=== PATIENT | male | born 1955 | race Caucasian/White ===

== ENCOUNTER 2023-02-21 06:26 | Day surgery (SDC) | payer OTHER ==
[~2023-02-21] VITALS: Ht 172.7 cm; Wt 81.6 kg
[~2023-02-21 06:26] MED LIST: GLIP5TAB13 PO; INSU100C5 IJ; INSU100V9 SQ; LISI10TA29 PO; METF-379 PO; [UNRECOGNIZED DRUG - OTHER]
[2023-02-21] MEDS ORDERED: CLINDAMYCIN PHOS 900 MG/ D5W 50 ML PREMIX IV ONE (07:00)
[2023-02-21] MEDS ORDERED: HYDROmorphone 2 MG/ML VIAL IVP PRN (08:45)
[2023-02-21] MEDS ORDERED: HYDROmorphone 1 MG/ML INJ. CARTRIDGE IVP PRN ×2 (08:45)
[2023-02-21] MEDS ORDERED: ONDANSETRON HCL 4 MG/2 ML VIAL IVP PRN ×2 (08:45→11:00)
[2023-02-21] MEDS ORDERED: fentaNYL CITRATE/PF 100 MCG/2 ML AMP ONE (10:37)
[2023-02-21] MEDS ORDERED: BACITRACIN ZINC 15 GM TOPICAL OINTMENT TP ONE (10:37)
[2023-02-21] MEDS ORDERED: SUGAMMADEX SODIUM 200 MG/2 ML VIAL IV ONE (10:37)
[2023-02-21] MEDS ORDERED: NS 1000 ML IV.SOLN IV ONE (10:37)
[2023-02-21] MEDS ORDERED: PROPOFOL 200MG/ 20ML VIAL (DIPRIVAN) IV ONE (10:37)
[2023-02-21] MEDS ORDERED: NS IRRIG SOLN 1000 ML IR ONE (10:37)
[2023-02-21] MEDS ORDERED: WATER FOR IRRIGATION,STERILE 1,000 ML IRRIG.SOLN IR ONE (10:37)
[2023-02-21] MEDS ORDERED: DESFLURANE 15 MIN GAS INH ONE (10:37)
[2023-02-21] MEDS ORDERED: OXYMETAZOLINE HCL 0.05% NASAL SPRAY NS ONE (10:37)
[2023-02-21] MEDS ORDERED: HYDROmorphone 2 MG/ML VIAL ONE (10:37)
[2023-02-21] MEDS ORDERED: SUCCINYLCHOLINE CHLORIDE 20 MG/ML(QUELICIN) ONE (10:37)
[2023-02-21] MEDS ORDERED: ROCURONIUM BROMIDE 10 MG/ML (ZEMURON) ONE (10:37)
[2023-02-21] MEDS ORDERED: LIDOCAINE/EPI 1% 1:100000 20 ML VIAL ONE (10:37)
[2023-02-21] MEDS ORDERED: ONDANSETRON HCL 4 MG/2 ML VIAL ONE ×3 (10:37→13:45)
[2023-02-21] MEDS ORDERED: METOCLOPRAMIDE HCL 10 MG/2 ML VIAL ONE (10:37)
[2023-02-21] MEDS ORDERED: LR 1,000 ML IV.SOLN IV ONE (10:37)
[2023-02-21] MEDS ORDERED: DEXAMETHASONE SOD PHOSPHATE 4 MG/ML VIAL ONE (10:37)
[2023-02-21] MEDS ORDERED: ACETAMINOPHEN I.V. 1000 MG 100 ML IV ONE (10:38)
[2023-02-21] MEDS ORDERED: ACETAMINOPHEN 500 MG TABLET PO PRN (11:00)
[2023-02-21] MEDS ORDERED: ONDANSETRON 4 MG ODT TAB PO PRN (11:00)
[2023-02-21 15:03] VITALS: BP_SYST 132
== END 2023-02-21 14:40 | disposition home or self-care (01) ==
LOC: SDS 06:26 → SMU 06:26 → SDS 14:40
PROVIDERS: ATTEND Otolaryngology
DX: J34.2 Deviated nasal septum (principal); J34.3 Hypertrophy of nasal turbinates; Z88.5 Allergy status to narcotic agent; E11.9 Type 2 diabetes mellitus without complications; K21.9 Gastro-esophageal reflux disease without esophagitis; Z86.73 Personal history of transient ischemic attack (TIA), and cerebral infarction without residual deficits; M06.9 Rheumatoid arthritis, unspecified; Z79.899 Other long term (current) drug therapy
CPT/HCPCS: 87081; 30520; 30140; 82948; 82962; J3490 ×2; J1100; J2765; J2405; J2704; J0330; J3010; J1170; J7120; J7030; J0131

== ENCOUNTER 2024-06-23 19:38 | Inpatient (IN) | payer OTHER ==
[~2024-06-23] VITALS: Ht 165.1 cm; Wt 69.6 kg
[~2024-06-23 19:38] MED LIST changes: +DOXY100T2 PO; +EMPA25TA PO; -GLIP5TAB13 PO; +GLIP5TAB23 PO; +HUM10VIA SUBCUT; +IBUP-1619 PO; +NEU300 PO; +OMEP20CA15 PO; +ROCPM1 IV; -[UNRECOGNIZED DRUG - OTHER]
[2024-06-23 20:57] VITALS: BP_SYST 116; PULSE 69; RESP 19; TEMP 97.8; O2SAT 98
[2024-06-23 22:07] LABS: BASOPHILS # (AUTO) 0.1 K/uL (0.0-0.2); BASOPHILS % (AUTO) 1.3 % (0.0-2.0); EOSINOPHILS # (AUTO) 0.2 K/uL (0.0-0.4); EOSINOPHILS % (AUTO) 2.6 % (0.0-4.0); HEMOGLOBIN 10.7 g/dL (14.0-18.0); LYMPHOCYTES # (AUTO) 1.5 K/uL (1.0-5.5); LYMPHOCYTES % (AUTO) 17.9 % (20.5-51.5); MEAN CORPUSCULAR HEMOGLOBIN 28 pg (27-31); MEAN CORPUSCULAR HGB CONC 33 % (32-36); MEAN CORPUSCULAR VOLUME 85 fL (79.0-98.0); MONOCYTES # (AUTO) 0.8 K/uL (0.0-1.0); MONOCYTES % (AUTO) 10.2 % (1.7-9.3); NEUTROPHILS # (AUTO) 5.5 K/uL (1.8-7.7); PLATELET COUNT (AUTO) 470 K/uL (130-430); RED BLOOD CELL COUNT(AUTO) 3.78 MIL/uL (4.2-6.2); RED CELL DISTRIBUTION WIDTH 14.6 % (9.0-15.0); WHITE BLOOD COUNT (AUTO) 8.1 K/uL (4.8-10.8)
[2024-06-23 22:31] LABS: ALBUMIN 2.7 g/dL (3.4-4.8); BILIRUBIN,DIRECT 0.1 mg/dL (0.0-0.3); CALCIUM 9.1 mg/dL (8.4-11.0); CREATININE 1.1 mg/dL (0.55-1.30); POTASSIUM 3.9 mmol/L (3.5-5.1); TOTAL BILIRUBIN 0.3 mg/dL (0.0-1.0)
[2024-06-23] MEDS ORDERED: VANCOMYCIN HCL 500 MG/VIAL IV ONE (23:59)
[2024-06-24] MEDS: NACL 0.9% 1,000 ML IV ONE (00:02)
[2024-06-24] MEDS: VANCOMYCIN HCL 1,000 MG in NS 250 ML IV ONE (00:06)
[2024-06-24] MEDS ORDERED: IBUPROFEN 600 MG TABLET ONE (00:15)
[2024-06-24] MEDS: IBUPROFEN 600 MG TABLET PO ONE (00:30)
[2024-06-24 01:50] VITALS: BP_SYST 147; PULSE 61; RESP 18; TEMP 97.5
[2024-06-24 02:09] VITALS: O2SAT 98
[2024-06-24] MEDS ORDERED: NON-FORMULARY MEDICATION (Empagliflozin (Jardiance) 25 MG) PO SCH (09:15)
[2024-06-24] MEDS ORDERED: ONDANSETRON HCL 4 MG/2 ML VIAL IVP PRN (09:15)
[2024-06-24] MEDS ORDERED: LORazepam 2 MG/ML VIAL IVP PRN (09:15)
[2024-06-24] MEDS ORDERED: OMEPRAZOLE Non-Formulary 20 MG CAPSULE.DR PO SCH (09:15)
[2024-06-24] MEDS ORDERED: IBUPROFEN 400 MG TABLET PO PRN (09:15)
[2024-06-24] MEDS: PANTOPRAZOLE SODIUM 40 MG TAB PO ONE (11:06)
[2024-06-24] MEDS: DOXYCYCLINE HYCLATE 100 MG TABLET PO ONE (11:06)
[2024-06-24] MEDS: INSULIN REGULAR, HUMAN 100 UNITS/ML, 3 ML VIAL (humuLIN R) SUBCUT PRN (11:13)
[2024-06-24] MEDS: metFORMIN HCL 500 MG TABLET PO ONE (11:15)
[2024-06-24] MEDS: GABAPENTIN 300 MG CAPSULE PO ONE (12:20)
[2024-06-24 12:28] LABS: BASOPHILS # (AUTO) 0.1 K/uL (0.0-0.2); BASOPHILS % (AUTO) 1.2 % (0.0-2.0); EOSINOPHILS # (AUTO) 0.3 K/uL (0.0-0.4); EOSINOPHILS % (AUTO) 4.2 % (0.0-4.0); HEMATOCRIT 33.2 % (36-54); HEMOGLOBIN 10.9 g/dL (14.0-18.0); LYMPHOCYTES # (AUTO) 1.3 K/uL (1.0-5.5); LYMPHOCYTES % (AUTO) 20.1 % (20.5-51.5); MEAN CORPUSCULAR HEMOGLOBIN 28 pg (27-31); MEAN CORPUSCULAR HGB CONC 33 % (32-36); MEAN CORPUSCULAR VOLUME 86 fL (79.0-98.0); MONOCYTES # (AUTO) 0.6 K/uL (0.0-1.0); MONOCYTES % (AUTO) 9.6 % (1.7-9.3); NEUTROPHILS % (AUTO) 64.9 % (40.0-70.0); PLATELET COUNT (AUTO) 453 K/uL (130-430); RED BLOOD CELL COUNT(AUTO) 3.86 MIL/uL (4.2-6.2); RED CELL DISTRIBUTION WIDTH 14.1 % (9.0-15.0); WHITE BLOOD COUNT (AUTO) 6.3 K/uL (4.8-10.8)
[2024-06-24 12:39] LABS: ALBUMIN 2.4 g/dL (3.4-4.8); CREATININE 0.68 mg/dL (0.55-1.30); TOTAL BILIRUBIN 0.3 mg/dL (0.0-1.0); TOTAL PROTEIN, SERUM 7.6 g/dL (6.4-8.3)
[2024-06-24 12:48] LABS: ERYTHROCYTE SEDIMENTATION RATE 118 MM/HR (0-15)
[2024-06-24] MEDS ORDERED: cefTRIAXone 1 GM IVPB PREMIX 50 ML IV SCH (14:00)
[2024-06-24] MEDS: NORMAL SALINE 5 ML DISP.SYRIN IVF SCH (14:01)
[2024-06-24] MEDS: CEFTRIAXONE IV SCH (15:28)
[2024-06-24] MEDS: DEXTROSE IV SCH (15:28)
[2024-06-24 16:22] VITALS: BP_SYST 137; PULSE 71; RESP 16; TEMP 97.9; O2SAT 98
[2024-06-24 16:47] LABS: PROTHROMBIN TIME 10.3 SECS (9.5-12.5)
[2024-06-24] MEDS: INSULIN Lispro 100 UNITS/ML, 3 ML VIAL (humaLOG) SUBCUT SCH (17:00)
[2024-06-24] MEDS ORDERED: INSULIN NPH/REGULAR 70-30, 100 UNITS/ML, 3 ML VIAL SUBCUT SCH (17:00)
[2024-06-24] MEDS ORDERED: EMPAGLIFLOZIN 10 MG TABLET PO SCH (17:00)
[2024-06-24] MEDS: EMPAGLIFLOZIN 10 MG TABLET PO ONE (17:44)
[2024-06-24 20:00] VITALS: BP_SYST 134; PULSE 74; RESP 18; TEMP 97.5; O2SAT 96
[2024-06-24] MEDS: GABAPENTIN 300 MG CAPSULE PO SCH (20:54)
[2024-06-24] MEDS: LISINOPRIL 10 MG TABLET (PRINIVIL) PO SCH (20:55)
[2024-06-24] MEDS: INSULIN GLARGINE 100 UNITS/ML, 10 ML VIAL SUBCUT ONE (20:56)
[2024-06-24] MEDS: DOXYCYCLINE HYCLATE 100 MG TABLET PO SCH (20:56)
[2024-06-24] MEDS ORDERED: INSULIN GLARGINE 100 UNITS/ML, 10 ML VIAL SQ SCH (21:00)
[2024-06-24] MEDS ORDERED: metFORMIN HCL 500 MG TABLET PO SCH (21:00)
[2024-06-24] MEDS ORDERED: INSULIN GLARGINE 100 UNITS/ML, 10 ML VIAL SUBCUT SCH (21:00)
[2024-06-24] MEDS: IBUPROFEN 600 MG TABLET PO PRN (23:55)
[2024-06-25] VITALS (7 sets, daily range): BP systolic 120–133; PULSE 69–86; RESP 16–18; TEMP 96.6–97.6; O2SAT 95–98
[2024-06-25 06:14] LABS: BILIRUBIN,URINE NEGATIVE (NEGATIVE); BLOOD, URINE NEGATIVE (NEGATIVE); CLARITY/URINE CLEAR (CLEAR); COLOR,URINE YELLOW (YELLOW); GLUCOSE,URINE 3+ (NEGATIVE); KETONES,URINE TRACE (NEGATIVE); LEUKOCYTE ESTERASE ,URINE NEGATIVE (NEGATIVE); NITRITE, URINE NEGATIVE (NEGATIVE); PROTEIN URINE NEGATIVE (NEGATIVE); UROBILINOGEN,URINE 0.2 (0.2-1.0)
[2024-06-25 07:12] LABS: BASOPHILS # (AUTO) 0.1 K/uL (0.0-0.2); BASOPHILS % (AUTO) 1.3 % (0.0-2.0); EOSINOPHILS # (AUTO) 0.3 K/uL (0.0-0.4); EOSINOPHILS % (AUTO) 3.8 % (0.0-4.0); HEMATOCRIT 33.6 % (36-54); HEMOGLOBIN 10.9 g/dL (14.0-18.0); LYMPHOCYTES # (AUTO) 1.4 K/uL (1.0-5.5); LYMPHOCYTES % (AUTO) 19.9 % (20.5-51.5); MEAN CORPUSCULAR HEMOGLOBIN 28 pg (27-31); MEAN CORPUSCULAR HGB CONC 33 % (32-36); MEAN CORPUSCULAR VOLUME 87 fL (79.0-98.0); MONOCYTES # (AUTO) 0.7 K/uL (0.0-1.0); MONOCYTES % (AUTO) 10.1 % (1.7-9.3); NEUTROPHILS # (AUTO) 4.6 K/uL (1.8-7.7); NEUTROPHILS % (AUTO) 64.9 % (40.0-70.0); PLATELET COUNT (AUTO) 488 K/uL (130-430); RED BLOOD CELL COUNT(AUTO) 3.88 MIL/uL (4.2-6.2); RED CELL DISTRIBUTION WIDTH 14.2 % (9.0-15.0)
[2024-06-25] MEDS ORDERED: LIDOCAINE 1% 10 MG/ML, 20 ML MDV ONE (07:15)
[2024-06-25] MEDS ORDERED: NS IRRIG SOLN 1000 ML IR ONE (07:15)
[2024-06-25] MEDS ORDERED: LR 1,000 ML IV.SOLN IV ONE (07:15)
[2024-06-25] MEDS ORDERED: ePHEDrine sulfate 50 MG/ML VIAL ONE (07:15)
[2024-06-25] MEDS ORDERED: cefTRIAXone 1 GM VIAL ONE (07:15)
[2024-06-25] MEDS ORDERED: METOCLOPRAMIDE HCL 10 MG/2 ML VIAL ONE (07:15)
[2024-06-25] MEDS ORDERED: BUPIVACAINE /PF 0.25% 30 ML VIAL INJ ONE (07:15)
[2024-06-25] MEDS ORDERED: ONDANSETRON HCL 4 MG/2 ML VIAL ONE (07:15)
[2024-06-25] MEDS ORDERED: PROPOFOL 200MG/ 20ML VIAL (DIPRIVAN) IV ONE (07:15)
[2024-06-25 07:24] LABS: CALCIUM 9.6 mg/dL (8.4-11.0); CREATININE 0.87 mg/dL (0.55-1.30); POTASSIUM 4.1 mmol/L (3.5-5.1)
[2024-06-25] MEDS: fentaNYL CITRATE/PF 100 MCG/2 ML AMP ONE (07:28)
[2024-06-25] MEDS: MIDAZOLAM HCL 5 MG/5 ML VIAL ONE (07:28)
[2024-06-25] MEDS ORDERED: KETOROLAC TROMETHAMINE 30 MG VIAL IVP PRN (08:15)
[2024-06-25] MEDS ORDERED: ONDANSETRON HCL 4 MG/2 ML VIAL IVP PRN (08:15)
[2024-06-25] MEDS: PANTOPRAZOLE SODIUM 40 MG TAB PO SCH (09:00)
[2024-06-25] MEDS: BALSAM PERU/CASTOR OIL 56.7 GM OINT...G. TP SCH (09:00)
[2024-06-25] MEDS: EMPAGLIFLOZIN 10 MG TABLET PO SCH (11:10)
[2024-06-25] MEDS ORDERED: DEXTROSE 50% JECT 50 ML DISP.SYRIN IVP PRN (12:15)
[2024-06-25] MEDS: INSULIN LISPRO SLIDING SCALE 100 UNITS/ML, 3 ML VIAL (humaLOG) SUBCUT PRN (17:44)
[2024-06-25] MEDS: INSULIN GLARGINE 100 UNITS/ML, 10 ML VIAL SUBCUT SCH (21:00)
[2024-06-26 00:08] VITALS: BP_SYST 133; PULSE 80; RESP 18; TEMP 98.7; O2SAT 98
[2024-06-26] MEDS: IBUPROFEN 800 MG TABLET PO PRN (04:12)
[2024-06-26 05:34] LABS: BASOPHILS # (AUTO) 0.1 K/uL (0.0-0.2); BASOPHILS % (AUTO) 1.2 % (0.0-2.0); EOSINOPHILS # (AUTO) 0.2 K/uL (0.0-0.4); HEMATOCRIT 30.7 % (36-54); HEMOGLOBIN 10.2 g/dL (14.0-18.0); LYMPHOCYTES # (AUTO) 0.8 K/uL (1.0-5.5); LYMPHOCYTES % (AUTO) 11.9 % (20.5-51.5); MEAN CORPUSCULAR HEMOGLOBIN 28 pg (27-31); MEAN CORPUSCULAR HGB CONC 33 % (32-36); MEAN CORPUSCULAR VOLUME 85 fL (79.0-98.0); MONOCYTES # (AUTO) 0.6 K/uL (0.0-1.0); MONOCYTES % (AUTO) 9.1 % (1.7-9.3); NEUTROPHILS # (AUTO) 5.3 K/uL (1.8-7.7); NEUTROPHILS % (AUTO) 74.8 % (40.0-70.0); PLATELET COUNT (AUTO) 419 K/uL (130-430); RED BLOOD CELL COUNT(AUTO) 3.61 MIL/uL (4.2-6.2); RED CELL DISTRIBUTION WIDTH 14.1 % (9.0-15.0)
[2024-06-26 06:24] LABS: ALBUMIN 2.3 g/dL (3.4-4.8); CREATININE 0.84 mg/dL (0.55-1.30); POTASSIUM 4.3 mmol/L (3.5-5.1); TOTAL BILIRUBIN 0.3 mg/dL (0.0-1.0); TOTAL PROTEIN, SERUM 7.3 g/dL (6.4-8.3)
[2024-06-26 07:41] LABS: ERYTHROCYTE SEDIMENTATION RATE 94 MM/HR (0-15)
[2024-06-26 08:45] VITALS: BP_SYST 123; PULSE 88; RESP 18; TEMP 97.3; O2SAT 96
[2024-06-26] MEDS ORDERED: PATIENT'S OWN TABLET PO SCH (09:00)
[2024-06-26 11:17] VITALS: BP_SYST 143; PULSE 74; RESP 16; TEMP 97.4; O2SAT 98
[2024-06-26 15:28] VITALS: BP_SYST 118; PULSE 75; RESP 16; TEMP 96.4; O2SAT 97
[2024-06-26 20:00] VITALS: BP_SYST 145; PULSE 79; RESP 18; TEMP 97.9; O2SAT 99
[2024-06-27] VITALS: BP_SYST 99; PULSE 78; RESP 18; TEMP 97.7; O2SAT 97
[2024-06-27 08:28] VITALS: BP_SYST 128; PULSE 86; RESP 18; O2SAT 96
[2024-06-27 08:56] LABS: CALCIUM 9.6 mg/dL (8.4-11.0); CREATININE 0.89 mg/dL (0.55-1.30); POTASSIUM 3.9 mmol/L (3.5-5.1)
[2024-06-27 08:58] LABS: BASOPHILS # (AUTO) 0.1 K/uL (0.0-0.2); EOSINOPHILS # (AUTO) 0.3 K/uL (0.0-0.4); HEMOGLOBIN 10.7 g/dL (14.0-18.0); LYMPHOCYTES # (AUTO) 1.2 K/uL (1.0-5.5); MONOCYTES # (AUTO) 0.8 K/uL (0.0-1.0)
[2024-06-27 09:01] LABS: EOSINOPHILS % (AUTO) 3.7 % (0.0-4.0); HEMATOCRIT 32.8 % (36-54); LYMPHOCYTES % (AUTO) 16.5 % (20.5-51.5); MEAN CORPUSCULAR HEMOGLOBIN 28 pg (27-31); MEAN CORPUSCULAR HGB CONC 33 % (32-36); MEAN CORPUSCULAR VOLUME 85 fL (79.0-98.0); MONOCYTES % (AUTO) 11.7 % (1.7-9.3); NEUTROPHILS # (AUTO) 4.8 K/uL (1.8-7.7); NEUTROPHILS % (AUTO) 67.1 % (40.0-70.0); PLATELET COUNT (AUTO) 469 K/uL (130-430); RED BLOOD CELL COUNT(AUTO) 3.84 MIL/uL (4.2-6.2); RED CELL DISTRIBUTION WIDTH 14.1 % (9.0-15.0); WHITE BLOOD COUNT (AUTO) 7.2 K/uL (4.8-10.8)
[2024-06-27 09:29] LABS: ERYTHROCYTE SEDIMENTATION RATE 119 MM/HR (0-15)
[2024-06-27 11:05] VITALS: BP_SYST 112; PULSE 72; RESP 16; TEMP 97.1; O2SAT 97
[2024-06-27 15:08] VITALS: BP_SYST 124; PULSE 80; RESP 16; TEMP 97.1; O2SAT 98
[2024-06-27 20:00] VITALS: BP_SYST 115; PULSE 78; RESP 18; TEMP 96.3; O2SAT 97
[2024-06-28] VITALS: BP_SYST 111; PULSE 70; RESP 18; TEMP 98.8; O2SAT 97
[2024-06-28] MEDS: CLINDAMYCIN 300 MG in D5W 50 ML IV SCH (00:55)
[2024-06-28] MEDS: CLINDAMYCIN 600 mg/50mL D5W 100 ML IV ONE (00:56)
[2024-06-28 07:00] VITALS: PULSE 70; O2SAT 97
[2024-06-28 07:58] LABS: BASOPHILS # (AUTO) 0.1 K/uL (0.0-0.2); BASOPHILS % (AUTO) 1.4 % (0.0-2.0); EOSINOPHILS # (AUTO) 0.3 K/uL (0.0-0.4); HEMATOCRIT 33.1 % (36-54); HEMOGLOBIN 10.6 g/dL (14.0-18.0); LYMPHOCYTES # (AUTO) 1.5 K/uL (1.0-5.5); LYMPHOCYTES % (AUTO) 23.6 % (20.5-51.5); MEAN CORPUSCULAR HEMOGLOBIN 28 pg (27-31); MEAN CORPUSCULAR HGB CONC 32 % (32-36); MEAN CORPUSCULAR VOLUME 86 fL (79.0-98.0); MONOCYTES # (AUTO) 0.7 K/uL (0.0-1.0); MONOCYTES % (AUTO) 10.8 % (1.7-9.3); NEUTROPHILS # (AUTO) 3.7 K/uL (1.8-7.7); NEUTROPHILS % (AUTO) 59.2 % (40.0-70.0); PLATELET COUNT (AUTO) 458 K/uL (130-430); RED BLOOD CELL COUNT(AUTO) 3.87 MIL/uL (4.2-6.2); RED CELL DISTRIBUTION WIDTH 14.1 % (9.0-15.0); WHITE BLOOD COUNT (AUTO) 6.2 K/uL (4.8-10.8)
[2024-06-28 08:00] VITALS: BP_SYST 94; PULSE 66; RESP 17; TEMP 96.8; O2SAT 100
[2024-06-28 08:02] LABS: CALCIUM 9.3 mg/dL (8.4-11.0); CREATININE 0.83 mg/dL (0.55-1.30); POTASSIUM 3.9 mmol/L (3.5-5.1)
[2024-06-28 08:19] LABS: ERYTHROCYTE SEDIMENTATION RATE 106 MM/HR (0-15)
[2024-06-28] MEDS: CEFEPIME 2 GM in D5W 100 ML IV SCH (10:12)
[2024-06-28] MEDS: INSULIN GLARGINE 100 UNITS/ML, 10 ML VIAL SUBCUT SCH (10:20)
[2024-06-28 11:08] VITALS: BP_SYST 114; PULSE 72; RESP 15; TEMP 96.8; O2SAT 100
[2024-06-28 15:50] VITALS: BP_SYST 120; PULSE 74; RESP 16; TEMP 97.5; O2SAT 98
[2024-06-28 20:00] VITALS: BP_SYST 133; PULSE 76; RESP 18; TEMP 98; O2SAT 98
[2024-06-29] VITALS: BP_SYST 136; PULSE 72; RESP 18; TEMP 97.9; O2SAT 96
[2024-06-29 07:00] VITALS: O2SAT 97
[2024-06-29 07:05] LABS: BASOPHILS # (AUTO) 0.1 K/uL (0.0-0.2); BASOPHILS % (AUTO) 1.3 % (0.0-2.0); EOSINOPHILS # (AUTO) 0.4 K/uL (0.0-0.4); EOSINOPHILS % (AUTO) 4.8 % (0.0-4.0); HEMATOCRIT 33.3 % (36-54); LYMPHOCYTES # (AUTO) 1.7 K/uL (1.0-5.5); LYMPHOCYTES % (AUTO) 23.5 % (20.5-51.5); MEAN CORPUSCULAR HEMOGLOBIN 28 pg (27-31); MEAN CORPUSCULAR HGB CONC 33 % (32-36); MEAN CORPUSCULAR VOLUME 85 fL (79.0-98.0); MONOCYTES # (AUTO) 0.7 K/uL (0.0-1.0); MONOCYTES % (AUTO) 10.1 % (1.7-9.3); NEUTROPHILS # (AUTO) 4.5 K/uL (1.8-7.7); NEUTROPHILS % (AUTO) 60.3 % (40.0-70.0); PLATELET COUNT (AUTO) 486 K/uL (130-430); RED BLOOD CELL COUNT(AUTO) 3.92 MIL/uL (4.2-6.2); RED CELL DISTRIBUTION WIDTH 14.2 % (9.0-15.0); WHITE BLOOD COUNT (AUTO) 7.4 K/uL (4.8-10.8)
[2024-06-29 07:26] LABS: ALBUMIN 2.5 g/dL (3.4-4.8); CALCIUM 9.3 mg/dL (8.4-11.0); CREATININE 0.88 mg/dL (0.55-1.30); POTASSIUM 4.2 mmol/L (3.5-5.1); TOTAL BILIRUBIN 0.3 mg/dL (0.0-1.0); TOTAL PROTEIN, SERUM 7.2 g/dL (6.4-8.3)
[2024-06-29 07:48] LABS: ERYTHROCYTE SEDIMENTATION RATE 101 MM/HR (0-15)
[2024-06-29 08:00] VITALS: BP_SYST 114; PULSE 75; RESP 18; TEMP 98.1; O2SAT 95
[2024-06-29 11:10] VITALS: BP_SYST 111; PULSE 73; RESP 16; TEMP 97.6; O2SAT 99
[2024-06-29 15:17] VITALS: BP_SYST 119; PULSE 73; RESP 16; TEMP 96.2; O2SAT 99
[2024-06-29 20:00] VITALS: BP_SYST 106; PULSE 74; RESP 18; TEMP 97.7; O2SAT 99
[2024-06-30] VITALS: BP_SYST 108; PULSE 64; RESP 18; TEMP 97.3
[2024-06-30 07:27] LABS: BASOPHILS # (AUTO) 0.1 K/uL (0.0-0.2); BASOPHILS % (AUTO) 1.4 % (0.0-2.0); EOSINOPHILS # (AUTO) 0.4 K/uL (0.0-0.4); EOSINOPHILS % (AUTO) 5.2 % (0.0-4.0); HEMATOCRIT 32.9 % (36-54); HEMOGLOBIN 10.8 g/dL (14.0-18.0); LYMPHOCYTES # (AUTO) 1.5 K/uL (1.0-5.5); LYMPHOCYTES % (AUTO) 21.1 % (20.5-51.5); MEAN CORPUSCULAR HEMOGLOBIN 28 pg (27-31); MEAN CORPUSCULAR HGB CONC 33 % (32-36); MEAN CORPUSCULAR VOLUME 85 fL (79.0-98.0); MONOCYTES # (AUTO) 0.8 K/uL (0.0-1.0); MONOCYTES % (AUTO) 11.1 % (1.7-9.3); NEUTROPHILS # (AUTO) 4.4 K/uL (1.8-7.7); NEUTROPHILS % (AUTO) 61.2 % (40.0-70.0); PLATELET COUNT (AUTO) 412 K/uL (130-430); RED BLOOD CELL COUNT(AUTO) 3.86 MIL/uL (4.2-6.2); RED CELL DISTRIBUTION WIDTH 14.4 % (9.0-15.0); WHITE BLOOD COUNT (AUTO) 7.1 K/uL (4.8-10.8)
[2024-06-30 07:54] LABS: CALCIUM 9.4 mg/dL (8.4-11.0); CREATININE 0.88 mg/dL (0.55-1.30); POTASSIUM 4.1 mmol/L (3.5-5.1)
[2024-06-30 08:00] VITALS: BP_SYST 118; PULSE 72; RESP 18; TEMP 97.8; O2SAT 98
[2024-06-30 08:00] LABS: ERYTHROCYTE SEDIMENTATION RATE 100 MM/HR (0-15)
[2024-06-30 11:59] VITALS: BP_SYST 118; PULSE 75; RESP 18; TEMP 98.2; O2SAT 97
[2024-06-30 17:14] VITALS: BP_SYST 143; PULSE 73; RESP 22; TEMP 97.6; O2SAT 100
[2024-06-30 20:02] VITALS: BP_SYST 143; PULSE 72; RESP 16; TEMP 97.5; O2SAT 98
[2024-07-01 01:18] VITALS: BP_SYST 131; PULSE 67; RESP 18; TEMP 97.5; O2SAT 95
[2024-07-01 04:29] VITALS: RESP 16; O2SAT 96
[2024-07-01 12:47] VITALS: BP_SYST 122; PULSE 69; RESP 16; TEMP 98; O2SAT 97
[2024-07-01 16:47] VITALS: BP_SYST 116; PULSE 73; RESP 16; TEMP 97.5; O2SAT 98
[2024-07-01 20:00] VITALS: BP_SYST 102; PULSE 79; RESP 20; TEMP 96.6; O2SAT 98
[2024-07-02 01:20] VITALS: RESP 20; TEMP 97; O2SAT 98
[2024-07-02 20:00] VITALS: BP_SYST 113; PULSE 75; RESP 18; TEMP 97.6; O2SAT 97
[2024-07-03] VITALS: BP_SYST 110; PULSE 73; RESP 17; TEMP 97.8; O2SAT 96
[2024-07-03 07:00] VITALS: O2SAT 98
[2024-07-03 08:00] VITALS: BP_SYST 114; PULSE 70; RESP 18; TEMP 98.2; O2SAT 100
[2024-07-03] MEDS: KETOROLAC TROMETHAMINE 30 MG VIAL IVP ONE (11:59)
[2024-07-03 12:00] VITALS: BP_SYST 144; PULSE 89; RESP 18; TEMP 98.6; O2SAT 98
[2024-07-03 15:12] VITALS: BP_SYST 120; PULSE 75; RESP 18; TEMP 98.6; O2SAT 99
== END 2024-07-03 15:35 | disposition home health service (06) | DRG 629 ==
LOC: SED 19:38 → SMU 06-24 00:44
PROVIDERS: ADMIT Preventive Medicine Preventive Medicine/Occupational Environmental Medicine; ATTEND Specialist
PROC: 0QBN0ZZ Excision of Right Metatarsal, Open Approach (ICD-10-PCS; principal; 2024-06-25 07:30)
DX: E11.69 Type 2 diabetes mellitus with other specified complication (principal); E44.0 Moderate protein-calorie malnutrition; L03.115 Cellulitis of right lower limb; M86.8X7 Other osteomyelitis, ankle and foot; E78.5 Hyperlipidemia, unspecified; E11.621 Type 2 diabetes mellitus with foot ulcer; E11.51 Type 2 diabetes mellitus with diabetic peripheral angiopathy without gangrene; I10 Essential (primary) hypertension; D64.9 Anemia, unspecified; D75.839 Thrombocytosis, unspecified; E11.65 Type 2 diabetes mellitus with hyperglycemia; Z88.5 Allergy status to narcotic agent; Z89.421 Acquired absence of other right toe(s); Z87.891 Personal history of nicotine dependence; Z79.4 Long term (current) use of insulin; Z90.49 Acquired absence of other specified parts of digestive tract; B96.89 Other specified bacterial agents as the cause of diseases classified elsewhere; Z68.25 Body mass index [BMI] 25.0-25.9, adult; I73.9 Peripheral vascular disease, unspecified
CPT/HCPCS: 36415; 71045; 80048; 80053; 80076; 81001; 81003; 83037; 85025; 85610; 85651; 85730; 86886; 86900; 86901; 87040; 87070; 87081; 88311; 93005; 94070; 99285; J0692; J0696; J1815; J2001; J2250; J2405; J2704; J2765; J3010; J3370; J3490; J7060; J7120